=== PATIENT | female | born 1980 | race Caucasian/White ===

== ENCOUNTER 2017-04-22 23:09 | Emergency (ER) | payer BC ==
[2017-04-23 01:41] LABS: HEMOGLOBIN 14.7 gm/dl (12.3-15.3); RED BLOOD COUNT 5.09 M/UL (4.00-5.10); WHITE BLOOD COUNT 5.9 K/UL (4.5-11.0)
[2017-04-23 02:00] LABS: BUN/CREATININE RATIO 16 (0-10)
== END 2017-04-23 03:38 | disposition home or self-care (01) ==
LOC: ER1 23:09
PROVIDERS: Emergency Medicine
DX: R42 Dizziness and giddiness (principal); R00.2 Palpitations; Z90.49 Acquired absence of other specified parts of digestive tract
CPT/HCPCS: 36415; 70450; 71010; 80053; 82550; 82553; 83874; 84484; 85025; 85379; 93005; 99284

== ENCOUNTER → 2020-11-18 | Outpatient (CLI) | payer BC, OTHER | LOC: MRI 09:00 | DX: G43.909 Migraine, unspecified, not intractable, without status migrainosus (principal) | CPT/HCPCS: 70551 ==

== ENCOUNTER 2020-12-26 13:24 | Emergency (ER) | payer BC, OTHER ==
[2020-12-26 15:39] LABS: HEMOGLOBIN 14.6 gm/dl (12.3-15.3); WHITE BLOOD COUNT 6.3 K/UL (4.5-11.0)
[2020-12-26 16:08] LABS: BUN/CREATININE RATIO 17 (0-10)
== END 2020-12-26 16:55 | disposition home or self-care (01) ==
LOC: ER1 13:24
PROVIDERS: Physician Assistant
DX: R07.89 Other chest pain (principal); R00.2 Palpitations; R42 Dizziness and giddiness
CPT/HCPCS: 36415; 71045; 80053; 82550; 82553; 83874; 84484; 85025; 85379; 93005; 99285